=== PATIENT | male | born 1945 | race Caucasian/White ===

== ENCOUNTER 2017-01-01 02:20 | Emergency (ER) | payer MEDICARE ==
[~2017-01-01] VITALS: Ht 180.3 cm; Wt 79.0 kg
[~2017-01-01 02:20] MED LIST: ASCO1TAB2 PO; CRAN450C PO; GLUC-121 PO; MULT-658 PO; [UNRECOGNIZED DRUG - OTHER] PO; [UNRECOGNIZED DRUG - OTHER] PO
[2017-01-01 02:22] VITALS: BP 171/89
[2017-01-01 03:12] LABS: HEMATOCRIT 44.1 % (39.2-51.8); WHITE BLOOD COUNT 4.7 x10^3/uL (3.4-10)
[2017-01-01 03:23] LABS: ASPARTATE AMINO TRANSFERASE 21 U/L (15-37); BLOOD UREA NITROGEN 26 mg/dL (7-18)
[2017-01-01 03:28] LABS: IS PT STATUS REG ER OR PRE ER? YES
== END 2017-01-01 04:15 | disposition home or self-care (01) ==
LOC: ED 03:22
DX: R07.2 Precordial pain (principal)
CPT/HCPCS: 36415; 71020; 80053; 84484; 85025; 93005; 99285